=== PATIENT | female | born 1950 | race Two or more races ===

== ENCOUNTER 2017-08-14 00:02 | Emergency (ER) | payer OTHER ==
[~2017-08-14] VITALS: Ht 152.4 cm; Wt 59.9 kg
[~2017-08-14 00:02] MED LIST: CIPRO500 MG PO; FLAGYL500MG PO; INTESTINEX680 MG PO; PROTONIX40 MG PO; ZANTAC150 MG PO
[2017-08-14] MEDS ORDERED: ZANTAC300 MG PO (10:42)
[2017-08-14] MEDS ORDERED: PROTONIX40 MG PO (10:42)
== END 2017-08-14 10:57 | disposition home or self-care (01) ==
LOC: ER 00:02
DX: K29.70 Gastritis, unspecified, without bleeding (principal)